=== PATIENT | female | born 1965 | race Caucasian/White ===

== ENCOUNTER 2018-10-10 20:11 | Emergency (ER) | payer MEDICAID, OTHER ==
[~2018-10-10] VITALS: Ht 162.6 cm; Wt 102.0 kg
[~2018-10-10 20:11] MED LIST: ASPI-1393 MT; ATOR10TA69 MT; CALC-1042 MT; DOCU-138 MT; LISI2.5T47 MT; METF-816 MT; PROT40 MT
[2018-10-10] MEDS ORDERED: ACETAMINOPHEN 500MG TABLET PO ONE (23:00)
[2018-10-10] MEDS ORDERED: ONDANSETRON HCL 4MG/2ML INJ IV ONE (23:15)
[2018-10-10 23:45] LABS: HEMATOCRIT. 41.5 % (36.0-48.0); HEMOGLOBIN. 14.2 g/dL (12.0-16.0); MEAN CORPUSCULAR HEMOGLOBIN 27.5 pg (28.0-32.0); MEAN PLATELET VOLUME 9.6 fl (7.4-10.4); PLATELET 167 x1000/uL (130-400); RED BLOOD CELL COUNT 5.18 mill/uL (4.2-5.4); RED CELL DISTRIBUTION WIDTH 14.7 % (11.6-14.6)
[2018-10-10 23:49] LABS: CLARITY URINE CLOUDY (CLEAR); COLOR URINE YELLOW (YELLOW); KETONES URINE NEGATIVE (NEGATIVE); LEUKOCYTE ESTERASE URINE 1+ (NEGATIVE); NITRITE URINE NEGATIVE (NEGATIVE); OCCULT BLOOD URINE NEGATIVE (NEGATIVE); PH URINE 5.5 (4.5-8.0); PROTEIN URINE 2+ (NEGATIVE); SPECIFIC GRAVITY URINE 1.011 (1.005-1.030); UROBILINOGEN URINE 0.2 E.U./dL (0.2-1.0)
[2018-10-10 23:54] LABS: CHLORIDE 101 mEq/L (98-107)
[2018-10-11] MEDS ORDERED: CEFTRIAXONE 1 G PREMIX 50 ML IV ONE
[2018-10-11 05:15] VITALS: BP 125/78
[2018-10-11 05:35] LABS: PLATELET ESTIMATE NORMAL
== END 2018-10-11 05:39 | disposition home or self-care (01) ==
LOC: ER 20:11 → CANBEDREQ 10-11 08:04
DX: R11.10 Vomiting, unspecified (principal); E11.9 Type 2 diabetes mellitus without complications; I10 Essential (primary) hypertension; M19.90 Unspecified osteoarthritis, unspecified site; Z79.84 Long term (current) use of oral hypoglycemic drugs; Z79.82 Long term (current) use of aspirin
CPT/HCPCS: 36415; 71045; 80053; 81003; 81025; 82962; 83605; 84145; 84484; 85025; 87040; 87086; 87804; 93005; 96365; 96375; 99284; J0696; J2405; Z7610